=== PATIENT | male | born 2000 | race African-American/Black ===

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

== ENCOUNTER 2018-03-18 19:44 | Emergency (ER) | payer SELFPAY ==
[2018-03-18 21:02] LABS: Hemoglobin 14.8 g/dL (14.0-18.0); Mean Corpuscular HGB CONC 33.8 g/dL (32.0-36.0); Mean Corpuscular Hemoglobin 30.7 pg (25.0-35.0); Mean Corpuscular Volume 90.7 fL (78.0-98.0); Mean Platelet Volume 7.9 fL (7.4-10.4); Platelet Count 213 thou/uL (130-400); RBC Distribution Width 10.9 % (11.5-14.5); Red Blood Cell (RBC) Count 4.81 mill/uL (4.00-5.20)
[2018-03-18 21:16] LABS: Lymphocytes 28 % (28-48); MDiff Complete? YES; Monocytes 14 % (0-4); Neutrophil 57 % (31-61); Reactive Lymphocytes 1 % (0-10)
[2018-03-18 21:20] LABS: ALT (SGPT) 12 U/L (8-55); AST (SGOT) 18 U/L (10-45); Albumin 4.5 g/dL (3.5-5.0); Alkaline Phosphatase 69 U/L (Less than 750); Anion Gap 14 mmol/L (10-20); BUN (Urea Nitrogen) 14 mg/dL (8.4-21.0); Bilirubin, Total 0.4 mg/dL (0.2-1.2); Calc. Creatinine Clearance 0 mL/min (70-130); Calcium 9.7 mg/dL (7.8-10.44); Carbon Dioxide 24 mmol/L (22-29); Chloride 105 mmol/L (98-107); Estimated GFR-MDRD Greater than 90; Globulin 3.2 g/dL (2.4-3.5); Glucose 77 mg/dL (70-105); Potassium 3.8 mmol/L (3.5-5.1); Protein, Total 7.7 g/dL (6.0-8.3); Sodium 139 mmol/L (136-145)
[2018-03-18 23:04] LABS: Bilirubin Small (Negative); Blood, Urine Negative (Negative); Clarity CLEAR (Clear); Glucose, Urine (Dipstick) Negative (Negative); Leukocyte Negative (Negative); Nitrite Negative (Negative); Protein, Urine (Dipstick) Trace mg/dL (Neg-Trace); Specific Gravity, Urine 1.041 (1.002-1.036)
--- NOTE | 2018-03-18 23:20 | RAD ---
AP VIEW CHEST: 03/18/2018 HISTORY: Weakness. COMPARISON: 11/03/2009 FINDINGS: AP view chest demonstrates the lungs to be well aerated. No evidence of active intrathoracic disease is seen. No evidence of effusions, pneumonia, or pneumothorax is seen. IMPRESSION: Unremarkable anterior-posterior view chest. POS: [facility]
== END 2018-03-18 23:09 | disposition home or self-care (01) ==
LOC: ERS 19:44
DX: R42 Dizziness and giddiness (principal); R19.7 Diarrhea, unspecified
CPT/HCPCS: 36415; 71045; 80053; 81003; 83690; 84443; 85025; 93005

== ENCOUNTER 2018-05-03 19:06 | Emergency (ER) | payer SELFPAY | END 2018-05-03 23:16 | disposition home or self-care (01) | LOC: ERS 19:06 | DX: J30.9 Allergic rhinitis, unspecified (principal) | CPT/HCPCS: 87081; 87430; 99281 ==

== ENCOUNTER 2018-05-16 19:11 | Emergency (ER) | payer SELFPAY ==
[2018-05-16] MEDS ORDERED: Ibuprofen 200 MG TAB ONE (20:21)
[2018-05-16] MEDS ORDERED: Bicillin LA 1.2 MILLION UNITS/2 ML SYRINGE ONE (20:21)
== END 2018-05-16 20:28 | disposition home or self-care (01) ==
LOC: ERS 19:11
DX: J02.0 Streptococcal pharyngitis (principal); J30.2 Other seasonal allergic rhinitis
CPT/HCPCS: 87430; 87804; 96372; J0561

== ENCOUNTER 2019-01-13 09:21 | Emergency (ER) | payer SELFPAY ==
[2019-01-13] MEDS ORDERED: Ibuprofen 800 MG TAB ONE (09:48)
== END 2019-01-13 10:09 | disposition home or self-care (01) ==
LOC: ERS 09:21
DX: H61.22 Impacted cerumen, left ear (principal)
CPT/HCPCS: 99282

== ENCOUNTER 2019-01-22 18:44 | Emergency (ER) | payer SELFPAY ==
[2019-01-22] MEDS ORDERED: Ibuprofen 200 MG TAB ONE (19:17)
[2019-01-22] MEDS ORDERED: Acetaminophen 500 MG TAB ONE ×2 (19:17→19:21)
== END 2019-01-22 20:09 | disposition home or self-care (01) ==
LOC: ERS 18:44
DX: J11.1 Influenza due to unidentified influenza virus with other respiratory manifestations (principal)
CPT/HCPCS: 87804; 99283